=== PATIENT | male | born 1955 | race Two or more races ===

== ENCOUNTER 2024-07-28 22:26 | Emergency (ER) | payer OTHER, SELFPAY ==
[2024-07-28 22:29] VITALS: BP 151/73; PULSE 76; RESP 16; TEMP 36.7; O2SAT 98
--- NOTE | 2024-07-28 22:39 | ED_ITS ---
HPI - Wound/Laceration General Chief Complaint: Wound/Laceration Stated Complaint: lac to left pointer finger, unknown tetanus. Time Seen by Provider: 07/28/24 22:28 History of Present Illness HPI narrative: 68-year-old male with no significant pertinent past medical history presenting t o the emergency room with a laceration to his left pointer finger. Patient states he was working on a door frame yesterday and accidentally had his stool slip and sliced his left finger. Bleeding was controlled and he did not seek medical attention. His son told him to go the hospital to get it evaluated and to get a tetanus shot. His wound is open but not actively bleeding and approximately 1 cm in his radial aspect/palmar aspect of the left index finger. No significant dehiscence or expose musculature or bone. Full range of motion without any pain. Patient is not sure about his tetanus status. Related Data Home Medications ?Medication ?Instructions ?Recorded ?Confirmed ?Last Taken ?Type No Home Medications 07/28/24 07/28/24 Unknown History Allergies Allergy/AdvReac Type Severity Reaction Status Date / Time No Known Allergies Allergy Verified 07/28/24 22:38 Review of Systems Review of Systems: As reviewed above in HPI Exam Narrative: GENERAL: [Well-appearing, well-nourished, and in no acute distress.] HEAD: [Normocephalic, atraumatic.] CHEST: Nonlabored respirations HEART: Warm extremities with good capillary refill EXTREMITIES: Normal range of motion. [No edema.] SKIN: 1.0 cm linear laceration over the radial aspect palmar surface of left index finger that does not cross any joint lines. No active bleeding, superficial tissues without any exposed musculature or tendons/bones. NEURO: [No focal deficits]. Alert and oriented [x3.] PSYCH: [Normal mood and affect.] Course Vital Signs Vital signs: Vital Signs Temperature 36.7 C 07/28/24 22:29 Pulse Rate 76 07/28/24 22:29 Respiratory Rate 16 07/28/24 22:29 Blood Pressure 151/73 H 07/28/24 22:29 Pulse Oximetry 98 07/28/24 22:29 Oxygen Delivery Room Air 07/28/24 22:29 Temperature 36.7 C 07/28/24 22:29 Pulse Rate 76 07/28/24 22:29 Respiratory Rate 16 07/28/24 22:29 Blood Pressure 151/73 H 07/28/24 22:29 Pulse Oximetry 98 07/28/24 22:29 Oxygen Delivery Room Air 07/28/24 22:29 Procedures Laceration Laceration 1: Date: 07/28/24 Time: 22:39 Site: hand Side (If applicable): left Size (cm): 1.0 Description: linear Depth: simple, single layer Local Anesthetic: none Pre-repair: wound explored, irrigated and deep structures intact ====== Skin Level ====== Skin layer closed with: dermabond and steri strips ====== Subcutaneous Layer ====== ====== Muscle Layer ====== ====== Tendon Layer ====== Dressing: Clean dressing applied over top with bandage MDM - Wound/Laceration MDM Narrative Medical decision making narrative: 68-year-old male presenting with a linear laceration to his left index finger that occurred last night. His tetanus is unknown. Patient is not any pain. 1.0 cm linear laceration over the radial aspect palmar surface of left index finger that does not cross any joint lines. No active bleeding, superficial tissues without any exposed musculature or tendons/bones. Good range of motion distal cap refill. Tetanus will be updated here and wound was repaired in a single layer with Dermabond and Steri-Strips with good approximation. Patient and family members given care instructions for his wound and safe for discharge at this time. Medical Records Attestation: I reviewed the patient's medical records. Discharge Plan Discharge Clinical Impression: Laceration Patient Disposition: Home Condition: Stable Instructions: Antibiotic Form, Laceration (ED), Skin Adhesive Care (ED), Skin Adhesive Strips (ED) Additional Instructions: Keep the area clean and dry for the next 24 hours to allow the wound to heal with the skin adhesive. Allow the Steri-Strips and glue to fall off naturally on its own, do not peel or try to take off the dried material before naturally falls off to prevent the wound from reopening. Return with any emergent concerns such as purulent drainage, inability to range the finger, fevers or any other concerns. Patient Language: Greenlandic Prescriptions: No Action No Home Medications Follow-up/Referrals: PHYSICIAN,CONVERSION MAN [Primary Care Provider] - Time of Disposition: 22:44
[2024-07-28] MEDS: TETANUS,DIPHTHERIA,AC PERTUSSIS ADULT (0.5 ML) BOOSTRIX IM (22:40)
--- OUTSIDE RECORDS SUMMARY | 2024-07-28 22:49 | XMS_ITS | Clinical Summary ---
Author Organization [facility] Address [address] [place] [address] Phone Care Team Providers Care Railcar Switchman Name Role Phone Gladis Bolton APRN, MARY Primary Care Provider Arcenio Peters MD Unavailable Allergies No known active allergies Medications No known medications Encounters Date Type Department Care Team Description 05/05/2024 10:45 AM CDT Office Visit [facility] [address] [place] [address] Arcenio Peters MD Elevated PSA (Primary Dx) Discharge Disposition: Discharged to home or Selfcare 05/03/2024 Travel from Last 3 Months Social History Tobacco Use Types Packs/Day Years Used Date Smoking Tobacco: Former Cigarettes Smokeless Tobacco: Never Tobacco Cessation:Counseling Given: Not Answered Alcohol Use Standard Drinks/Week Comments Never 0 (1 standard drink = 0.6 oz pur e alcohol) Sexually Active Control Partners Comments Not Currently Sex and Gender Information Value Date Recorded Sex Assigned at Not on file 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 Gender Identity Not on file Sexual Orientation Not on file Last Filed Vital Signs Vital Sign Reading Time Taken Comments Blood Pressure 157/84 05/05/2024 11:15 AM CDT Pulse 52 05/05/2024 11:15 AM CDT Temperature - - Respiratory Rate 16 05/05/2024 11:15 AM CDT Oxygen Saturation 97% 05/05/2024 11:15 AM CDT Inhaled Oxygen Concentration - - Weight 73.8 kg (162 lb 9.6 oz) 05/05/2024 11:15 AM CDT Height 175.3 cm (5' 9) 05/05/2024 11:15 AM CDT Body Mass Index 24.01 05/05/2024 11:15 AM CDT Plan of Treatment Upcoming Encounters Date Type Department Care Team (Late st Contact Info) Description 09/29/2024 10:15 AM CDT Office Visit [facility] [address] [place] [address] Arcenio Peters MD [address], [facility] [address] [place] [address] Health Maintenance Due Date Last Done Comments Hepatitis C Virus (HCV) Screening 1955 TdaP Immunization 1955 Colonoscopy 2001 Colorectal Cancer Screening 2001 Cologuard 2006 Immunochemical Fecal Occult Blood 2006 Pneumococcal Immunization (5 0+ years) (1 of 1 - PCV) 2006 Zoster Immunization (1 of 2) 2006 PSA Discussion 10/06/2011 AAA Screening Ultrasound 2021 Influenza Immunization (#1) 2023 SARS-COV-2 Immunization (1 - season) 2023 Respiratory Syncytial Virus (RSV) Immunization (Adult) (1 - 1-dose 75+ series) 10/06/2031 Hepatitis B Immunization Aged Out No longer eligible based on patient's age to complete this topic Meningococcal Immunization (ACWY) Aged Out No longer eligible based on patient's age to complete this topic Rotavirus Immunization Aged Out No lo nger eligible based on patient's age to complete this topic Procedures Procedure Name Priority Date/Time Associated Diagnosis Comments POCT UA AUTOMATED W/O MICRO Routine 05/05/2024 11:06 AM CDT Elevated PSA JOSEFA,POST-VOID RES,US,NON-IMAGING Routine 05/05/2024 10:45 AM CDT Elevated PSA from Last 3 Months Results * POCT UA AUTOMATED W/O MICRO (05/05/2024 11:06 AM CDT) POC UA SPECIFIC GRAVITY 1.030 URINE PH 5.0 5.0 - 9.0 POC URINE LEUKOCYTES Negative Negative Robinson/uL POC URINE NITRITE Negative Negative POC URINE PROTEIN Negative Negative mg/dL POC URINE GLUCOSE Norm Negative, Norm mg/dL POC URINE KETONE Negative Negative mg/dL POC URINE UROBILINOGEN Norm Norm, 0.2 E.U./dL (mg/dL), 1 E.U./dL (mg/dL) POC URINE BILIRUBIN Negative Negative mg/dL POC URINE BLOOD INSTRUMENT Negative Negative Pk/uL POC URINE COLOR Yellow POC URINE CLARITY Clear Urine 05/05/2024 11:0 6 AM CDT us Arcenio Peters MD POINT OF CARE TESTING (MANUAL) F inal Result * JOSEFA,POST-VOID RES,US,NON-IMAGING (05/05/2024 10:45 AM CDT) Narrative Tamiko Still - 05/05/2024 10:45 AM CDT Tamiko Still 05/05/2024 3:06 PM POCT Bladder Scan collected per standing order of Dr. Peters on 05/05/2024 PVR= 0 ML us Arcenio Peters MD [place] - SURGERY Final Result from Last 3 Months Insurance MEDICAID [employer] [facility] Care Teams Railcar Switchman Relationship Specialty Start Date End Date Gladis Bolton, MEDICAL ADMINISTRATOR, GROUND OPERATIONS SUPERVISOR [address], [address] [place] [address] PCP - General Advanced Practice Nurse 01/19/24 Arcenio Peters MD [address], [address] [place] [address] Consulting Physician Urology 05/05/24
--- OUTSIDE RECORDS SUMMARY | 2024-07-28 22:49 | XMS_ITS | Data Portability ---
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 Jameson, who concurs with assessment and plan. [email or web address] Not available 01/12/2024 11:59:44 06/18/2024 06/18/[address] Jameson, who concurs with assessment and plan. [email or web address] Not available 07/02/2024 11:02:17 Plan of Treatment Reminders Order Date Submit Date Provider Last Modified By Organization Details Last Modified Time Details Appointments None record ed. Lab vitami n B12, serum 2023 BENJY [facility], [address], [place], [address], 4 08:25:36 PSA, total, serum or plasma 2023 024 BENJY [facility], [address], [place], [address], 4 08:25:38 vitami n D, 25-hyd mariella, total, serum 2023 024 BENJY [facility], [address], [place], [address], 4 08:25:39 CMP, serum or plasma 2023 024 [facility], [address], [place], [address], 4 10:14:07 lipid panel, serum 2023 024 [facility], [address], [place], [address], 4 10:14:06 CBC w/ diff 2023 024 [facility], [address], [place], [address], 4 08:25:35 TSH + free T4, serum 2023 024 [facility], [address], [place], [address], 4 08:25:34 urinal ysis, comple te 2023 024 [facility], [address], [place], [address], 4 10:14:09 Referral otolar yngolo gist referr haritha david g aids 2023 024 ayesha Renteria MD, [address], [place], [address], 5 18:22:26 Procedures None record ed. Surgeries None record ed. Imaging None record ed. Medication Orders ofloxa rigoberto 0.3 % ear drops 2023 024 [id number], [address], [place], [place], [id number], 5 11:46:53 Patient TargetsNo targets recorded. Patient Instructions Encounter Date Encounter Id Patient Instructions Last Modified By Organization Details Last Modified Time 01/12/2024 [id number] A healthy lifestyle: care instructions [email or web address] Not available 01/12/2024 12:11:08 Plan of care has been discussed with patient including expected therapeutic benefits and potential side effects of prescribed medication and treatments. Patient verbalizes understanding and is in agreement with the plan of care. Patient was instructed to keep all scheduled appointments and contact the clinic for any additional problems. Health Maintenance: - CRC screening (45-75):Due at 45 years. Patient declined 11/26/22 - Osteoporosis screening: Due at 70. - Lipid screening (>45 unless additional risk factors): ordered today -Eye exam: Provided contact information for patient scheduling - Immunizations: - Influenza: Due, declined - Prevnar: Due at 65, declined - Pneumovax: Due at 65, declined - Tdap/Td ([id number]): ordered - Zoster (>60):Due at 60. declined - COVID-19: declined 11/26/22 - AAA screening (65-75): Due at 65, declined - Prostate ca screening (>50 or >45 if AA, +FH; d/w patient): Due at 50, ordered -Labs ordered this visit: CMP, CBC, lipid panel, TSH, Free T4, vitamin D, vitamin B12, UA, PSA [email or web address] Not available 01/21/2024 14:59:10 06/18/2024 [id number] Plan of care has been discussed with patient including expected therapeutic benefits and potential side effects of prescribed medication and treatments. Patient verbalizes understanding and is in agreement with the plan of care. Patient was instructed to keep all scheduled appointments and contact the clinic for any additional problems. Health Maintenance: - CRC screening (45-75):Due at 45 years. Patient declined - Osteoporosis screening: Due at 70. - Lipid screening (>45 unless additional risk factors): ordered today -Eye exam: Provided contact information for patient scheduling - Immunizations: - Influenza: Due, declined - Prevnar: Due at 65, declined - Pneumovax: Due at 65, declined - Tdap/Td ([id number]): ordered - Zoster (>60):Due at 60. 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 Hearing loss needing hearing aids Referring Physician: Gladis Bolton, Family Medicine, Encounter Date: 01/12/2024 Results Created Date Observation Date Name Description Value Unit Range Abnormal Flag Note LastModifiedBy Organization Detail LastModifiedTime 11/27/1911/27/2022 LIPID PANEL cholesterol, total 223 mg/dL 100-19 9 above high normal Not Available [facility] Department [address] [place], [address], 11/27/2022 03:36:40 11/27/1911/27/2022 LIPID PANEL triglyceride s 208 mg/dL 0-149 above high normal Not Available [facility] Department [address] [place], [address], 11/27/2022 03:36:40 11/27/1911/27/2022 LIPID PANEL HDL cholesterol 43 mg/dL 40-999 Not Available [facility] Department [address] [place], [address], 11/27/2022 03:36:40 11/27/1911/27/2022 LIPID PANEL VLDL cholesterol jovan 42 mg/dL 5-40 above high normal Not Available [facility] Department [address] [place], [address], 11/27/2022 03:36:40 11/27/1911/27/2022 LIPID PANEL LDL chol calc ([facility]) 167 mg/dL 0-99 above high normal Not Available [facility] Department [address] [place], [address], 11/27/2022 03:36:40 11/27/1911/27/2022 COMP. METAB OLIC PANEL (14) glucose 94 mg/dL 70-99 Not Available [facility] Department [address] [place], [address], 11/27/2022 03:36:41 11/27/19 23 11/27/2022 COMP. METAB OLIC PANEL (14) BUN 18 mg/dL 8-27 Not Available [facility] Department [address] [place], [address], 11/27/2022 03:36:41 11/27/19 23 11/27/2022 COMP. METAB OLIC PANEL (14) creatinine 0.94 mg/dL 0.76-1 .27 Not Available [facility] Department [address] [place], [address], 11/27/2022 03:36:41 11/27/1911/27/2022 COMP. METAB OLIC PANEL (14) eGFR 89 >=60 Units for eGFR value s are mL/mi n/1.7 3 The eGFR Calcu latio n has not been valid ated for patie nts under the age of 18. If test resul ts are displ ayed for a patie nt under the age of 18, disre yohan that value . Not Available [facility] Department [address] [place], [address], 11/27/2022 03:36:41 11/27/19 23 11/27/2022 COMP. METAB OLIC PANEL (14) BUN/creatini ne ratio 19 10-24 Not Available [facility] Department [address] [place], [address], 11/27/2022 03:36:41 11/27/19 23 11/27/2022 COMP. METAB OLIC PANEL (14) sodium 145 mmol/ L 134-14 4 above high normal Not Available [facility] Department [address] [place], [address], 11/27/2022 03:36:41 11/27/19 23 11/27/2022 COMP. METAB OLIC PANEL (14) potassium 4.4 mmol/ L 3.5-5. 2 Not Available [facility] Department [address] [place], [address], 11/27/2022 03:36:41 11/27/1911/27/2022 COMP. METAB OLIC PANEL (14) chloride 108 mmol/ L 96-106 above high normal Not Available [facility] Department [address] [place], [address], 11/27/2022 03:36:41 11/27/1911/27/2022 COMP. METAB OLIC PANEL (14) carbon dioxide, total 29 mmol/ L 20-29 Not Available [facility] Department [address] [place], [address], 11/27/2022 03:36:41 11/27/1911/27/2022 COMP. METAB OLIC PANEL (14) calcium 9.9 mg/dL 8.6-10 .2 Not Available [facility] Department [address] [place], [address], 11/27/2022 03:36:41 11/27/1911/27/2022 COMP. METAB OLIC PANEL (14) protein, total 7.6 g/dL 6.0-8. 5 Not Available [facility] Department [address] [place], [address], 11/27/2022 03:36:41 11/27/19 23 11/27/2022 COMP. METAB OLIC PANEL (14) albumin 4.6 g/dL 3.9-4. 9 Not Available [facility] Department [address] [place], [address], 11/27/2022 03:36:41 11/27/1911/27/2022 COMP. METAB OLIC PANEL (14) globulin, total 3.0 g/dL 1.5-4. 5 Not Available [facility] Department [address] [place], [address], 11/27/2022 03:36:41 11/27/19 23 11/27/2022 COMP. METAB OLIC PANEL (14) A/G ratio 1.6 1.2-2. 2 Not Available [facility] Department [address] [place] [address], [address], 11/27/2022 03:36:41 11/27/19 23 11/27/2022 COMP. METAB OLIC PANEL (14) bilirubin, total 0.9 mg/dL 0.0-1. 2 Not Available [facility] Department [address] [place], [address], 11/27/2022 03:36:41 11/27/19 23 11/27/2022 COMP. METAB OLIC PANEL (14) alkaline phosphatase 84 IU/L 44-121 Not Available [facility] Department [address] [place], [address], 11/27/2022 03:36:41 11/27/19 23 11/27/2022 COMP. METAB OLIC PANEL (14) AST (SGOT) 17 IU/L 0-40 Not Available [facility] Department [address] [place] [address], [address], 11/27/2022 03:36:41 11/27/1911/27/2022 COMP. METAB OLIC PANEL (14) ALT (SGPT) 13 IU/L 0-44 Not Available [facility] Department [address] [place] [address], [address], 11/27/2022 03:36:41 11/27/1911/26/2022 URINA LYSIS , COMPL ETE specific gravity See below: 1.005- 1.030 abnormal >=1.0 30 Not Available [facility] Department [address] [place], [address], 11/27/2022 03:36:42 11/27/1911/26/2022 URINA LYSIS , COMPL ETE pH 5.0 5.0-7. 0 Not Available [facility] Department [address] [place] [address], [address], 11/27/2022 03:36:42 11/27/1911/26/2022 URINA LYSIS , COMPL ETE urine-color YELLOW yellow Not Available [facility] Department [address], [place], [address], 11/27/2022 03:36:42 11/27/1911/26/2022 URINA LYSIS , COMPL ETE appearance CLEAR Not Available [facility] Department [address], [place], [address], 11/27/2022 03:36:42 11/27/1911/26/2022 URINA LYSIS , COMPL ETE WBC esterase Commen t NEGAT SHAKIR Not Available [facility] Department [address], [place], [address], 11/27/2022 03:36:42 11/27/1911/26/2022 URINA LYSIS , COMPL ETE protein Commen t NEGAT SHAKIR Not Available [facility] Department [address], [place], [address], 11/27/2022 03:36:42 11/27/1911/26/2022 URINA LYSIS , COMPL ETE glucose Commen t NEGAT SHAKIR Not Available [facility] Department [address], [place], [address], 11/27/2022 03:36:42 11/27/1911/26/2022 URINA LYSIS , COMPL ETE ketones Commen t NEGAT SHAKIR Not Available [facility] Department [address], [place], [address], 11/27/2022 03:36:42 11/27/1911/26/2022 URINA LYSIS , COMPL ETE occult blood Commen t NEGAT SHAIKR Not Available [facility] Department [address], [place], [address], 11/27/2022 03:36:42 11/27/1911/2611/26/2022 URINA LYSIS , COMPL ETE bilirubin Commen t NEGAT SHAKIR Not Available [facility] Department [address] [place], [address], 11/27/2022 03:36:42 11/27/1911/26/2022 URINA LYSIS , COMPL ETE urobilinogen ,semi-qn 0.2 eu/dL 0.2-1. 0 Not Available [facility] Department [address] [place], [address], 11/27/2022 03:36:42 11/27/1911/26/2022 URINA LYSIS , COMPL ETE nitrite, urine Commen t negati ve NEGAT SHAKIR Not Available [facility] Department [address] [place], [address], 11/27/2022 03:36:42 11/27/1911/28/2022 TSH+F REE T4 TSH 0.212 uIU/m L 0.450- 4.500 below low normal Not Available [facility] ([facility]) [address] [place], [address], 11/29/2022 14:37:09 11/27/1911/28/2022 TSH+F REE T4 T4,free(dire ct) 1.26 NG/dL 0.82-1 .77 Not Available [facility] ([facility]) [address] [place], [address], 11/29/2022 14:37:09 11/27/1911/28/2022 VITAM IN B12 WITH REFLE X vitamin B12 226 pg/mL 232-12 45 below low normal Not Available [facility] ([facility]) [address] [place], [address], 11/29/2022 14:37:10 11/27/19 23 11/27/2022 CBC/D /PLT W/ REFLE X DIEGO TIN WBC 7.8 x10e3 /uL 3.4-10 .8 Not Available [facility] ([facility]) [address] [facility], [place], [address], 11/29/2022 14:37:10 11/27/19 23 11/27/2022 CBC/D /PLT W/ REFLE X DIEGO TIN RBC 5.12 x10e6 /uL 4.14-5 .80 Not Available [facility] ([facility]) [address] [facility], [place], [address], 11/29/2022 14:37:10 11/27/1911/27/2022 CBC/D /PLT W/ REFLE X DIEGO TIN hemoglobin 14.8 g/dL 13.0-1 7.7 Not Available [facility] ([facility]) [address] [facility], [place], [address], 11/29/2022 14:37:10 11/27/1911/27/2022 CBC/D /PLT W/ REFLE X DIEGO TIN hematocrit 45.1 % 37.5-5 1.0 Not Available [facility] ([facility]) [address] [facility], [place], [address], 11/29/2022 14:37:10 11/27/19 23 11/27/2022 CBC/D /PLT W/ REFLE X DIEGO TIN MCV 88 fL 79-97 Not Available [facility] ([facility]) [address] [facility], [place], [address], 11/29/2022 14:37:10 11/27/1911/27/2022 CBC/D /PLT W/ REFLE X DIEGO TIN MCH 28.9 pg 26.6-3 3.0 Not Available [facility] ([facility]) [address] [facility], [place], [address], 11/29/2022 14:37:10 11/27/19 23 11/27/2022 CBC/D /PLT W/ REFLE X DIEGO TIN MCHC 32.8 g/dL 31.5-3 5.7 Not Available [facility] ([facility]) [address] [facility], [place], [address], 11/29/2022 14:37:10 11/27/19 23 11/27/2022 CBC/D /PLT W/ REFLE X DIEGO TIN RDW 13.0 % 11.6-1 5.4 Not Available [facility] ([facility]) [address] [facility], [place], [address], 11/29/2022 14:37:10 11/27/1911/27/2022 CBC/D /PLT W/ REFLE X DIEGO TIN platelets 335 x10e3 /uL 150-45 0 Not Available [facility] ([facility]) [address] [facility], [place], [address], 11/29/2022 14:37:10 11/27/1911/27/2022 CBC/D /PLT W/ REFLE X DIEGO TIN neutrophils 63 % notest ab. Not Available [facility] ([facility]) [address] [facility], [place], [address], 11/29/2022 14:37:10 11/27/19 23 11/27/2022 CBC/D /PLT W/ REFLE X DIEGO TIN lymphs 23 % notest ab. Not Available [facility] ([facility]) [address] [facility], [place], [address], 11/29/2022 14:37:10 11/27/19 23 11/27/2022 CBC/D /PLT W/ REFLE X DIEGO TIN monocytes 7 % notest ab. Not Available [facility] ([facility]) [address] [facility], [place], [address], 11/29/2022 14:37:10 11/27/19 23 11/27/2022 CBC/D /PLT W/ REFLE X DIEGO TIN eos 6 % notest ab. Not Available [facility] ([facility]) [address] [facility], [place], [address], 11/29/2022 14:37:10 11/27/1911/27/2022 CBC/D /PLT W/ REFLE X DIEGO TIN basos 1 % notest ab. Not Available [facility] ([facility]) [address] [facility], [place], [address], 11/29/2022 14:37:10 11/27/1911/27/2022 CBC/D /PLT W/ REFLE X DIEGO TIN neutrophils (absolute) 5.0 x10e3 /uL 1.4-7. 0 Not Available [facility] ([facility]) [address] [facility], [place], [address], 11/29/2022 14:37:10 11/27/19 23 11/27/2022 CBC/D /PLT W/ REFLE X DIEGO TIN lymphs (absolute) 1.8 x10e3 /uL 0.7-3. 1 Not Available [facility] ([facility]) [address] [facility], [place], [address], 11/29/2022 14:37:10 11/27/19 23 11/27/2022 CBC/D /PLT W/ REFLE X DIEGO TIN monocytes(ab solute) 0.6 x10e3 /uL 0.1-0. 9 Not Available [facility] ([facility]) [address] [facility], [place], [address], 11/29/2022 14:37:10 11/27/19 23 11/27/2022 CBC/D /PLT W/ REFLE X DIEGO TIN eos (absolute) 0.5 x10e3 /uL 0.0-0. 4 above high normal Not Available [facility] ([facility]) [address] [facility], [place], [address], 11/29/2022 14:37:10 11/27/19 23 11/27/2022 CBC/D /PLT W/ REFLE X DIEGO TIN baso (absolute) 0.1 x10e3 /uL 0.0-0. 2 Not Available [facility] ([facility]) [address] [facility], [place], [address], 11/29/2022 14:37:10 11/27/19 23 11/27/2022 CBC/D /PLT W/ REFLE X DIEGO TIN immature granulocytes 0 % notest ab. Not Available [facility] ([facility]) [address] [facility], [place], [address], 11/29/2022 14:37:10 11/27/1911/27/2022 CBC/D /PLT W/ REFLE X DIEGO TIN immature grans (abs) 0.0 x10e3 /uL 0.0-0. 1 Not Available [facility] ([facility]) [address] [facility], [place], [address], 11/29/2022 14:37:10 11/27/1911/28/2022 PROST ATE-S PECIF IC AG prostate specific Ag 6.9 NG/mL 0.0-4. 0 above high normal Ho ECLIA metho dolog y. Accor ding to the Ameri can Urolo gical Assoc iatio n, Serum PSA shoul d decre ase and remai n at undet ectab le level s after radic al prost atect karthik. The AUA defin es bioch emica l recur rence as an initi al PSA value 0.2 ng/mL or great er follo wed by a subse quent confi rmato ry PSA value 0.2 ng/mL or great er. Value s obtai kaley with diffe rent assay metho ds or kits canno t be used inter villalba eaclayy . Resul ts canno t be inter prete d as absol [place] evide nce of the prese nce or absen ce of ari mauro se. Not Available [facility] ([facility]) [address] [facility], [place], [address], 11/29/2022 14:37:11 10/03/20 23 11/28/2022 VITAM IN D, 25-HY DROXY vitamin D, 25-hydroxy 26.0 NG/mL 30.0-1 00.0 below low normal Vitam in D defic iency has been defin ed by the Insti tute of Medic ine and an Endoc rine Socie ty pract ice guide line as a level of serum 25-OH vitam in D less than 20 ng/mL (1,2) . The Endoc rine Socie ty went on to furth er defin e vitam in D insuf ficie ncy as a level betwe en 21 and 29 ng/mL (2). 1. IOM (Inst itute of Medic ine). 2009. Rosanaa ry refer ence intmerary es for calci um and D. Karen pradhan [place]: [facility] . 2. Viet escamilla [place], Fred gillis [place], Segundo off-F errar i BEAL, et al. Evalu ation , treat ment, and preve ntion of vitam in D defic iency : an Endoc rine Socie ty clini jovan pract ice guide line. JCEM. 2010; 96(7) :1911 -30. Not Available [facility] ([facility]) [address] [facility], [place], [address], 11/29/2022 14:37:12 11/27/19 23 11/29/2022 METHY LMALO LIBORIO ACID, SERUM methylmaloni c acid, serum - nmol/ L Test not perfo rmed. Insuf ficie nt speci men to perfo rm or compl ete freddie sis. Not Available [facility] ([facility]) [address] [facility], [place], [address], 11/29/2022 14:37:11 11/27/19 23 11/29/2022 SPECI MEN STATU S REPOR T specimen status report TNP Test not perfo rmed. Insuf ficie nt speci men to perfo rm or compl ete freddie sis. TEST: 73052 7 Methy lmalo liborio Acid, Serum Panel : 00642 3 Not Available [facility] ([facility]) [address] [facility], [place], [address], 11/29/2022 14:37:09 11/27/1911/26/2022 MICRO SCOPI C EXAMI NATIO N WBC 0-2 Not Available [facility] Department [address] [place], [address], 11/27/2022 03:36:41 11/27/1911/26/2022 MICRO SCOPI C EXAMI NATIO N RBC 0-2 Not Available [facility] Department [address] [place], [address], 11/27/2022 03:36:41 11/27/1911/26/2022 MICRO SCOPI C EXAMI NATIO N epithelial cells (non renal) Commen t NONE SEEN Not Available [facility] Department [address] [place], [address], 11/27/2022 03:36:41 11/27/1911/26/2022 MICRO SCOPI C EXAMI NATIO N crystal type Commen t Calci um Oxala te Cryst als Ur 1+ NOT ESTB. N Not Available [facility] Department [address] [place], [address], 11/27/2022 03:36:41 11/27/1911/26/2022 MICRO SCOPI C EXAMI NATIO N bacteria Commen t NONE SEEN Not Available [facility] Department [address] [place], [address], 11/27/2022 03:36:41 12/10/1912/12/2022 TSH+F REE T4 TSH 0.107 uIU/m L 0.450- 4.500 below low normal Not Available [facility] ([facility]) [address] [facility], [place], [address], 12/12/2022 12:37:23 12/10/1912/12/2022 TSH+F REE T4 T4,free(dire ct) 1.30 NG/dL 0.82-1 .77 Not Available [facility] ([facility]) [address] [facility], [place], [address], 12/12/2022 12:37:23 12/10/19 23 12/12/2022 PROST ATE-S PECIF IC AG prostate specific Ag 6.1 NG/mL 0.0-4. 0 above high normal Ho ECLIA metho dolog y. Accor ding to the Ameri can Urolo gical Assoc iatio n, Serum PSA shoul d decre ase and remai n at undet ectab le level s after radic al prost atect karthik. The AUA defin es bioch emica l recur rence as an initi al PSA value 0.2 ng/mL or great er follo wed by a subse quent confi rmato ry PSA value 0.2 ng/mL or great er. Value s obtai kaley with diffe rent assay metho ds or kits canno t be used inter villalba eably . Resul ts canno t be inter prete d as absol [place] evide nce of the prese nce or absen ce of ari amaral se. Not Available [facility] ([facility]) [address] [facility], [place], [address], 12/12/2022 12:37:23 01/12/20 24 01/13/2024 TSH+F REE T4 TSH 0.197 uIU/m L 0.450- 4.500 below low normal Not Available [facility] ([facility]) [address] [place], [address], 01/13/2024 08:25:34 01/12/20 24 01/13/2024 TSH+F REE T4 T4,free(dire ct) 1.44 NG/dL 0.82-1 .77 Not Available [facility] ([facility]) [address] [place], [address], 01/13/2024 08:25:34 01/12/20 24 01/13/2024 CBC/D /PLT W/ REFLE X DIEGO TIN WBC 9.9 x10e3 /uL 3.4-10 .8 Not Available [facility] ([facility]) [address] [facility], [place], [address], 01/13/2024 08:25:35 01/12/20 24 01/13/2024 CBC/D /PLT W/ REFLE X DIEGO TIN RBC 5.05 x10e6 /uL 4.14-5 .80 Not Available [facility] ([facility]) [address] [facility], [place], [address], 01/13/2024 08:25:35 01/12/20 24 01/13/2024 CBC/D /PLT W/ REFLE X DIEGO TIN hemoglobin 14.6 g/dL 13.0-1 7.7 Not Available [facility] ([facility]) [address] [facility], [place], [address], 01/13/2024 08:25:35 01/12/20 24 01/13/2024 CBC/D /PLT W/ REFLE X DIEGO TIN hematocrit 44.6 % 37.5-5 1.0 Not Available [facility] ([facility]) [address] [facility], [place], [address], 01/13/2024 08:25:35 01/12/20 24 01/13/2024 CBC/D /PLT W/ REFLE X DIEGO TIN MCV 88 fL 79-97 Not Available [facility] ([facility]) [address] [facility], [place], [address], 01/13/2024 08:25:35 01/12/20 24 01/13/2024 CBC/D /PLT W/ REFLE X DIEGO TIN MCH 28.9 pg 26.6-3 3.0 Not Available [facility] ([facility]) [address] [facility], [place], [address], 01/13/2024 08:25:35 01/12/20 24 01/13/2024 CBC/D /PLT W/ REFLE X DIEGO TIN MCHC 32.7 g/dL 31.5-3 5.7 Not Available [facility] ([facility]) [address] [facility], [place], [address], 01/13/2024 08:25:35 01/12/20 24 01/13/2024 CBC/D /PLT W/ REFLE X DIEGO TIN RDW 13.0 % 11.6-1 5.4 Not Available [facility] ([facility]) [address] [facility], [place], [address], 01/13/2024 08:25:35 01/12/20 24 01/13/2024 CBC/D /PLT W/ REFLE X DIEGO TIN platelets 345 x10e3 /uL 150-45 0 Not Available [facility] ([facility]) [address] [facility], [place], [address], 01/13/2024 08:25:35 01/12/20 24 01/13/2024 CBC/D /PLT W/ REFLE X DIEGO TIN neutrophils 64 % notest ab. Not Available [facility] ([facility]) [address] [facility], [place], [address], 01/13/2024 08:25:35 01/12/20 24 01/13/2024 CBC/D /PLT W/ REFLE X DIEGO TIN lymphs 21 % notest ab. Not Available [facility] ([facility]) [address] [facility], [place], [address], 01/13/2024 08:25:35 01/12/20 24 01/13/2024 CBC/D /PLT W/ REFLE X DIEGO TIN monocytes 8 % notest ab. Not Available [facility] ([facility]) [address] [facility], [place], [address], 01/13/2024 08:25:35 01/12/20 24 01/13/2024 CBC/D /PLT W/ REFLE X DIEGO TIN eos 5 % notest ab. Not Available [facility] ([facility]) [address] [facility], [place], [address], 01/13/2024 08:25:35 01/12/20 24 01/13/2024 CBC/D /PLT W/ REFLE X DIEGO TIN basos 1 % notest ab. Not Available [facility] ([facility]) [address] [facility], [place], [address], 01/13/2024 08:25:35 01/12/20 24 01/13/2024 CBC/D /PLT W/ REFLE X DIEGO TIN neutrophils (absolute) 6.4 x10e3 /uL 1.4-7. 0 Not Available [facility] ([facility]) [address] [facility], [place], [address], 01/13/2024 08:25:35 01/12/20 24 01/13/2024 CBC/D /PLT W/ REFLE X DIEGO TIN lymphs (absolute) 2.1 x10e3 /uL 0.7-3. 1 Not Available [facility] ([facility]) [address] [facility], [place], [address], 01/13/2024 08:25:35 01/12/20 24 01/13/2024 CBC/D /PLT W/ REFLE X DIEGO TIN monocytes(ab solute) 0.8 x10e3 /uL 0.1-0. 9 Not Available [facility] ([facility]) [address] [place], [address], 01/13/2024 08:25:35 01/12/20 24 01/13/2024 CBC/D /PLT W/ REFLE X DIEGO TIN eos (absolute) 0.5 x10e3 /uL 0.0-0. 4 above high normal Not Available [facility] ([facility]) [address] [place], [address], 01/13/2024 08:25:35 01/12/20 24 01/13/2024 CBC/D /PLT W/ REFLE X DIEGO TIN baso (absolute) 0.1 x10e3 /uL 0.0-0. 2 Not Available [facility] ([facility]) [address] [place], [address], 01/13/2024 08:25:35 01/12/20 24 01/13/2024 CBC/D /PLT W/ REFLE X DIEGO TIN immature granulocytes 1 % notest ab. Not Available [facility] ([facility]) [address] [place], [address], 01/13/2024 08:25:35 01/12/20 24 01/13/2024 CBC/D /PLT W/ REFLE X DIEGO TIN immature grans (abs) 0.1 x10e3 /uL 0.0-0. 1 Not Available [facility] ([facility]) [address] [facility], [place], [address], 01/13/2024 08:25:35 01/12/20 24 01/13/2024 VITAM IN B12 vitamin B12 292 pg/mL 232-12 45 Not Available [facility] ([facility]) [address] [place], [address], 01/13/2024 08:25:36 01/12/20 24 01/13/2024 PROST ATE-S PECIF IC AG prostate specific Ag 6.4 NG/mL 0.0-4. 0 above high normal Ho ECLIA metho dolog y. Accor ding to the Ameri can Urolo gical Assoc iatio n, Serum PSA shoul d decre ase and remai n at undet ectab le level s after radic al prost atect karthik. The AUA defin es bioch emica l recur rence as an initi al PSA value 0.2 ng/mL or great er follo wed by a subse quent confi rmato ry PSA value 0.2 ng/mL or great er. Value s obtai kaley with diffe rent assay metho ds or kits canno t be used inter villalba eably . Resul ts canno t be inter prete d as absol [place] evide nce of the prese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 -patient reports he is still followed up with Urology and they are monitoring his PSA level.-patient reports his daughter is hopefully getting this year. And he has another daughter who is ready to start having children. ROBERTA LOBO Attn: [address] [place], [address], [place] [facility] 07/02/2024 11:04:26
== END 2024-07-28 22:51 | disposition home or self-care (01) ==
LOC: ANHED 22:47
PROVIDERS: Emergency Provider Student in an Organized Health Care Education/Training Program
DX: S61.211A Laceration without foreign body of left index finger without damage to nail, initial encounter (principal); Z23 Encounter for immunization; W26.8XXA Contact with other sharp object(s), not elsewhere classified, initial encounter
CPT/HCPCS: 12001; 90471; 90715; 99282